=== PATIENT | female | born 1950 | race Caucasian/White ===

== ENCOUNTER 2021-02-22 16:06 | Emergency (ER) | payer MEDICARE, SELFPAY ==
--- NOTE | ~2021-02-22 | CT_ITS ---
EXAMINATION: CT abdomen pelvis wo con DATE: 02/22/2021 17:22 INDICATION: Nausea. Fever. TECHNIQUE: Computed tomography (CT) of the abdomen and pelvis was performed without intravenous contr ast. Automated exposure control and iterative reconstruction technique were employed. The dose-length product was 1162.10 mGy-cm. COMPARISON: CT abdomen and pelvis 11/05/2019 FINDINGS: The visualized portions of the lung bases demonstrate mild atelectasis. No pleural effusion . There are scattered pulmonary nodules measuring up to 7 mm in left lower lobe without change, likel y benign. No pleural effusion. The heart size is normal. No pericardial effusion. There is diffuse he patic steatosis. The gallbladder, spleen, pancreas, adrenal glands, and kidneys are normal. There are no urolithiasis. There is diverticulosis of the colon without evidence of diverticulitis. The append ix is not visualized. There is an umbilical hernia containing fat. There are no pathologically enlarg ed lymph nodes. There is no free intraperitoneal fluid. There is healed interbody fusion from L2 to S 1. At L1-L2, interbody bone graft is incorporated at the L2 superior endplate. There are changes of p osterior fusion procedure from T11 to S1 with pedicle screws. Again seen is lucency around the T11 an d T12 screws, consistent with loosening. IMPRESSION: 1. Diffuse hepatic steatosis. Reviewed, dictated and finalized at location A.
[2021-02-22 16:12] VITALS: BP 153/78; PULSE 97; RESP 20; TEMP 37.4; O2SAT 98
[2021-02-22 16:53] LABS: Add Urine Microscopic? YES; Appearance Urine Clear (Clear); Bilirubin Urine Negative (Negative); Blood Urine 1+ (Negative); Color Urine Yellow (Yellow); Glucose Urine UA Negative (Negative); Ketones Urine Negative (Negative); Leukocyte Esterase Ur Trace LEU/UL (Negative); Mucus Urine Rare /lpf; Nitrate Urine Negative (Negative); Protein Urine Negative (Negative); Specific Grav Ur 1.014 (1.001-1.035); Squamous Epithelial Cell Urine Occasional /hpf (Few); Urobilinogen Urine Negative mg/dL (<2.0)
--- NOTE | 2021-02-22 17:51 | ED.GENADULT ---
HPI - General Adult General Chief complaint: Urogenital-Female Stated complaint: back pain, UTI Time Seen by Provider: 02/22/21 16:36 History of Present Illness HPI narrative: Patient is a 70-year-old female who presents to the ER with low back pain. Patient reports her back pain has been going on for the last couple of days. Anytime she leans against something with her back it causes increased pain and burning. It is bilateral. No trauma to her back. Patient has chronic back pain and has had previous surgery. She also takes pain medication and muscle relaxers daily for it. She reports today when she was using the restroom she felt like she may have passed a kidney stone in the lower part of her abdomen. No urinary frequency urgency or dysuria. She is without fevers or chills or sweats. No saddle anesthesia or numbness or tingling radiating to her lower extremities. She is able to walk and has no loss of strength. Patient did call her doctor and was recently prescribed an antibiotic to treat possible UTI. Related Data Home Medications Medication Instructions Recorded Confirmed alprazolam 11/05/19 cetirizine [Zyrtec] mg 11/05/19 cyclobenzaprine mg 11/05/19 diclofenac-misoprostol tablet PO 11/05/19 ergocalciferol (vitamin D2) 11/05/19 hydrocodone-acetaminophen 11/05/19 melatonin 3 mg PO HS 11/05/19 nitrofurantoin monohyd/m-cryst 02/22/21 Allergies Allergy/AdvReac Type Severity Reaction Status Date / Time bupropion [From Wellbutrin] Allergy Hives Verified 02/22/21 16:37 steroids Allergy Anaphylactic Uncoded 02/22/21 16:37 Shock Review of Systems Review of Systems: All systems reviewed & are unremarkable except as noted in HPI and below Constitutional: Constitutional: Denies chills, Denies fever(s) and Denies weakness Gastrointestinal: Gastrointestinal: Denies abdominal pain, Denies diarrhea, Denies nausea and Denies vomiting Genitourinary: Genitourinary: Denies hematuria, Denies nocturia and Denies dysuria Musculoskeletal: Musculoskeletal: Reports back pain, Denies arthralgias and Reports muscle cramps PMF Past Medical History Medical History (Updated 02/22/21 @ 18:01 by Oswald Alvarez MD) Anxiety COPD (chronic obstructive pulmonary disease) Fibromyalgia Surgical History Surgical History (Updated 02/22/21 @ 17:58 by Oswald Alvarez MD) Previous back surgery Social History Social History Gender identity (if verbalized by the patient): Female Exam Narrative: Exam Narrative: GENERAL: Well-appearing, well-nourished, and in no acute distress. HEAD: Normocephalic, atraumatic. CHEST: Clear to auscultation. No respiratory distress. HEART: Regular rate and rhythm. Normal peripheral pulses. ABDOMEN: Soft, nontender, nondistended. Back: No midline tenderness of thoracic lumbar spine. There is paraspinal muscular tenderness bilaterally around L3 where there is tense muscles. No visual evidence of trauma. EXTREMITIES: Normal range of motion. No edema. SKIN: Warm, dry, no rash. NEURO: Alert and oriented x3. Course Course Emergency Course: Offered patient pain relief which she declined. Patient is not having symptoms of infection. She reports no focal neurologic deficit. No trauma to her back. Imaging shows no fracture kidney stone. There is no visual evidence of shingles to the back. Recommend follow-up with PCP. Discussed low back pain could be causing radicular discomfort causing the burning sensation. Patient does not wish to have a modified [place] to her home meds. Patient was recently started on antibiotic and should continue taking it. No evidence of pyelonephritis. Vital Signs Vital signs: Vital Signs Temperature 99.3 F 02/22/21 16:12 Pulse Rate 97 02/22/21 16:12 Respiratory Rate 20 02/22/21 16:12 Blood Pressure 153/78 H 02/22/21 16:12 Pulse Oximetry 98 02/22/21 16:12 Temperature 99.3 F 02/22/21 16:12 Pulse Rate 97 02/22/21 16:
== END 2021-02-22 18:15 | disposition home or self-care (01) ==
PROVIDERS: Emergency Provider Emergency Medicine; PCP Internal Medicine
DX: M54.5 Low back pain (principal); G89.29 Other chronic pain; M79.7 Fibromyalgia; F41.9 Anxiety disorder, unspecified; J44.9 Chronic obstructive pulmonary disease, unspecified; K76.0 Fatty (change of) liver, not elsewhere classified
CPT/HCPCS: 74176; 81001; 99284